=== PATIENT | female | born 1970 | race Caucasian/White ===

== ENCOUNTER → 2022-02-12 | Outpatient (CLI) | payer OTHER ==
--- NOTE | 2022-02-12 17:22 | RAD ---
Exam performed: Single view pelvis and 2 views right hip. HISTORY: Right hip pain. 02/10/2020: None available FINDINGS: Single AP view pelvis and AP and frog-leg lateral view of the right hip is obtained. Normal alignment of the hip joint is maintained. Both sacroiliac joints are preserved. There is no acute fracture or dislocation. Nonspecific bowel gas pattern is seen. IMPRESSION: No acute abnormality seen. Electronically signed by: Cynthia Ribeiro MD (02/12/2022 5:20 PM) [facility]
== END ==
LOC: RAD 09:07
PROVIDERS: ATTEND Anesthesiology Pain Medicine
DX: Z02.71 Encounter for disability determination (principal); M25.511 Pain in right shoulder
CPT/HCPCS: 73502